=== PATIENT | male | born 1965 ===

== ENCOUNTER 2019-08-20 14:45 | Outpatient (CLI) | payer OTHER ==
--- NOTE | 2019-08-20 15:31 | XRay Report ---
LUMBAR SPINE 3 VIEWS INDICATION / CLINICAL INFORMATION: M54.5 LOW BACK PAIN. COMPARISON: None available. FINDINGS: Moderate (approximately 7 mm) anterolistheses of L5 on S1. The superior endplate of L4 is slightly compressed, probably an old injury. Signer Name: Gomez David MD Signed: 08/20/2019 3:27 PM Workstation Name: [id number]
== END 2019-08-20 14:46 | disposition home or self-care (01) ==
LOC: XRAY 14:45
PROVIDERS: ATTEND Internal Medicine
DX: Z02.71 Encounter for disability determination (principal); M43.17 Spondylolisthesis, lumbosacral region
CPT/HCPCS: 72100